=== PATIENT | male | born 1955 | race Hispanic/Latino ===

== ENCOUNTER → 2017-12-04 | Day surgery (SDC) | payer BC ==
[~2017-12-04] MED LIST: ASPIR 8181 MG PO; ATORVASTATIN CA20 MG PO; CEFTRIAXONE SOD 1 GM VIAL ONE; CO Q10100 MG PO; DEXAMETHASONE SOD PHOS INJ 4 MG/ML VIAL ONE; EPHEDRINE SULFATE INJ 50 MG/10 ML SYR ONE; FENTANYL CITRATE/PF 100MCG/2 ML INJ ONE; HYDROMORPHONE 2MG/ML 2 MG/ML ML ONE; LIDOCAINE HCL 2% LOCAL INJ 5 ML SDV VIAL INJ ONE; LISINOPRIL10 MG PO; METFORMIN HCL500 MG PO; METOPROLOL TART25 MG PO; MIDAZOLAM HCL 2 MG/2 ML VIAL ONE; ONDANSETRON HCL INJ 2 MG/ML VIAL ONE; PANTOPRAZOLE SO40 MG PO; PROPOFOL IV EMULSION 10 MG/ML 20 ML VIAL ONE; SEVOFLURANE INHAL SOLN 250 ML PEN BTL ONE
--- NOTE | 2017-12-04 14:54 | Operative Report ---
DATE OF PROCEDURE: December 04, 2017 PREOPERATIVE DIAGNOSES 1. Right spermatocele. 1. Benign prostatic hypertrophy. POSTOPERATIVE DIAGNOSES 1. Right spermatocele. 2. Benign prostatic hypertrophy. 3. Right lipoma of the spermatic cord. OPERATIONS PERFORMED 1. Scrotal exploration on the right side. 2. Right spermatocelectomy. 3. Excision of lipoma of the cord on the right. 4. Flexible cystoscopy. YARN WRAPPER: Dr. Anish Gonzalez. ANESTHETIC: General. Mr. Cruz is a 62-year-old male who presented with a chief complaint of a mass on the right scrotum. Workup showed the mass to be a right spermatocele. He was also noted to have lower urinary tract obstructive symptoms. This patient was placed on the table in the supine position and was prepped and draped in a sterile manner after satisfactory anesthesia. A longitudinal incision over the anterolateral border of the right hemiscrotum incising the skin and the dartos muscle. The tunica vaginalis with the testicle and the spermatocele were then delivered outside the scrotal sac. The tunica vaginalis was incised longitudinally. Attention was now directed to the spermatocele and there were two of them, one on the upper and one on the lower pole of the epididymis. Attention was directed to the one on the globus major, and this was shelled completely without difficulty. Hemostasis was obtained and was very adequate. Attention was now directed to the globus minor, and the spermatocele around that area was then again shelled using Metzenbaum scissors and hemostasis using the electrocautery and was shelled completely. Attention was directed to the spermatic cord, and the tunica vaginalis around the spermatic cord was incised longitudinally. The lipoma was excised from the spermatic cord and shelled out without difficulty. Hemostasis was obtained and was very adequate. Attention was now directed to the wound closure, and the tunica vaginalis was bottlenecked behind the spermatic cord in a continuous fashion using 3-0 Vicryl. The testicle and the cord were delivered inside the scrotal sac. Attention was now directed to the scrotal closure, and the dartos muscle was approximated continuously using 3-0 Vicryl. The skin was approximated interruptedly using 3-0 Vicryl. A sterile dressing was applied over the Dermabond. Cystoscopy was then performed using the flexible cystoscope and it was noted that the urethra was normal. The prostatic urethra was about 3 to 3.5 cm long, partially occlusive. The bladder wall was normal with no evidence of gross tumor, pathology, or any papillary lesions. The bladder was drained, cystoscope removed, and patient taken to the recovery room in satisfactory condition. Plans for this patient are to be placed on Augmentin 500 mg one 3 times a day for 1 week. Tylenol No. 3 and was given 1 every 4 to 6 hours p.r.n. and was given 30. He was instructed to keep the ice pack on and is to return to the office in 3 weeks. Job#: [id number] EV
[2017-12-04 15:00] VITALS: BP 130/84
== END | disposition home or self-care (01) ==
LOC: OR 10:54
PROVIDERS: ATTEND Specialist
DX: N43.42 Spermatocele of epididymis, multiple (principal); N40.1 Benign prostatic hyperplasia with lower urinary tract symptoms; N13.8 Other obstructive and reflux uropathy; D17.6 Benign lipomatous neoplasm of spermatic cord; E11.9 Type 2 diabetes mellitus without complications; K21.9 Gastro-esophageal reflux disease without esophagitis; I10 Essential (primary) hypertension; E78.00 Pure hypercholesterolemia, unspecified; Z79.82 Long term (current) use of aspirin; Z79.84 Long term (current) use of oral hypoglycemic drugs
CPT/HCPCS: 36415; 52000; 54840; 55520; 82948; 88304; J0696; J1100; J1170; J2001; J2250; J2405

== ENCOUNTER 2018-04-23 08:09 | Observation (INO) | payer BC ==
[~2018-04-23] VITALS: Ht 172.7 cm; Wt 85.0 kg
[~2018-04-23 08:09] MED LIST changes: -CEFTRIAXONE SOD 1 GM VIAL ONE; -DEXAMETHASONE SOD PHOS INJ 4 MG/ML VIAL ONE; -EPHEDRINE SULFATE INJ 50 MG/10 ML SYR ONE; -FENTANYL CITRATE/PF 100MCG/2 ML INJ ONE; +HYDRALAZINE HCL25 MG PO; -HYDROMORPHONE 2MG/ML 2 MG/ML ML ONE; -LIDOCAINE HCL 2% LOCAL INJ 5 ML SDV VIAL INJ ONE; -MIDAZOLAM HCL 2 MG/2 ML VIAL ONE; -ONDANSETRON HCL INJ 2 MG/ML VIAL ONE; -PROPOFOL IV EMULSION 10 MG/ML 20 ML VIAL ONE; -SEVOFLURANE INHAL SOLN 250 ML PEN BTL ONE
--- OUTSIDE RECORDS SUMMARY | 2018-04-23 08:15 | XMS REPORT | Clinical Summary ---
Author Author Eric [facility] Organization [facility] Address Unknown Phone Unavailable Care Team Providers Care Swaging Machine Adjuster Name Role Phone Asked, No Pcp PCP Unavailable Allergies Not on File Medications Not on file Active Problems Not on file Encounters Care Team Description Date Type Specialty Jax Carter Preop testing (Primary Dx) 11/29/2017 Orders Only Procedural Cardiology after 04/22/2017 Social History Date Tobacco Use Types Packs/Day Years Used Never Assessed Sex Assigned at Date Recorded Not on file Industry Job Start Date Occupation Not on file Not on file Not on file Travel End Travel History Travel Start No recent travel history available. Last Filed Vital Signs Not on file Plan of Treatment Health Maintenance Due Date Last Done Comments COLON CANCER SCREENING 2006 SHINGLES VACCINES (1 of 2006 2) INFLUENZA VACCINE 10/09/2017 Procedures Comments Procedure Name Priority Date/Time Associated Diagnosis ECG 12-LEAD Routine 11/28/2017 Preop testing 4:25 PM CDT after 04/22/2017 Results * ECG 12 lead (11/28/2017 4:25 PM CDT) Ventricular rate 61 [facility] Atrial rate 61 [facility] IA interval 164 [facility] QRSD interval 90 [facility] QT interval 428 [facility] QTC interval 430 [facility] P axis 1 9 [facility] QRS axis 1 31 [facility] T wave axis 33 [facility] EKG impression Normal sinus rhythm-Normal [facility] ECG-No previous ECGs available- Performing Organization Address City/State/Zipcode Phone Number [facility] [address] [place] [address] after 04/22/2017 Insurance Payer Benefit Subscriber ID Type Phone Address Plan / Group BCBS BCBS OUT xxxxxxxxxxxx PPO OF STATE Advance Directives Patient has advance care planning documents on file. For more information, frederick patiño contact: Eric Najera [address] [place] [address]
[2018-04-23] MEDS ORDERED: HYOSCYAMINE 0.125 MG TAB ONE (08:45)
[2018-04-23] MEDS ORDERED: LEVOFLOXACIN 500MG/D5W 100ML 100 ML IV ONE (08:45)
[2018-04-23] MEDS ORDERED: FUROSEMIDE INJ 10 MG/ML 4 ML VIAL ONE (11:33)
[2018-04-23] MEDS ORDERED: FENTANYL CITRATE/PF 100MCG/2 ML INJ ONE ×2 (11:55→18:05)
[2018-04-23] MEDS ORDERED: TRAMADOL/APAP 37.5MG-325MG TAB PO ONE (12:45)
[2018-04-23] MEDS ORDERED: HYOSCYAMINE 0.125 MG TAB SL ONE (13:00)
--- NOTE | 2018-04-23 13:03 | Operative Report ---
DATE OF PROCEDURE: April 23, 2018 PREOPERATIVE DIAGNOSIS: BPH. POSTOPERATIVE DIAGNOSIS: BPH. OPERATIONS 1. Cystourethroscopy. 2. Transurethral resection of prostate, laser, XPS. [employer] EM[employer]Y SERVICES MANAGER: Dr. Jackson ANESTHETIC: General. Mr. Perez is a 62-year-old male who presented with the chief complaint of significant lower urinary obstructive symptoms. Rectal exam showed an enlarged prostate gland, about 50-60 g, firm and benign. His PSA was normal. Cystourethroscopy showed an enlarged occlusive prostate gland about 4 cm long, trilobar and occlusive. This patient was placed on the table in the lithotomy position, and was prepped and draped in a sterile manner after satisfactory anesthesia. A #23.5 cystoresectoscope was used. Cystourethroscopy was performed and confirmed the previous cystoscopic findings. The XPS laser scope generator was then started starting at 120 feliciano vaporization level and 40 feliciano coagulation level. The median lobe was vaporized completely and flattened to the level of the floor of the prostatic fossa. Vaporization was then started from 12 o'clock to 11 o'clock to 7 o'clock starting at the bladder neck to just proximal to the verumontanum and down to the capsular fibers. Hemostasis was obtained all through and was very adequate. Vaporization was then started again from 1 to 5 o'clock, again starting at the bladder neck to just proximal to the verumontanum and down to the capsular fibers. Again, hemostasis was very adequate. At the termination of the procedure, the laser scope generator was shut down. The cystoresectoscope was removed. The #22-German Orosco catheter was placed on mild traction. Estimated blood loss was zero mL. Job#: [id number] MT
[2018-04-23] MEDS ORDERED: ONDANSETRON HCL INJ 2MG/ML 2ML 2 MG/ML VIAL IV PRN (13:15)
[2018-04-23] MEDS ORDERED: HYDROMORPHONE 1MG/1ML INJ IV PRN (13:15)
--- OUTSIDE RECORDS SUMMARY | 2018-04-23 13:18 | XMS REPORT | Clinical Summary ---
Author Author Eric [facility] Organization [facility] Address Unknown Phone Unavailable Care Team Providers Care Drop Shipment Clerk Name Role Phone Asked, No Pcp PCP [...] [facility] Atrial rate 61 [facility] MD interval 164 [facility] QRSD interval 90 [...] [facility] [address] [place] [address] after 04/22/2017 Insurance Payer Benefit Subscriber ID Type Phone Address Plan / Group BCBS BCBS OUT xxxxxxxxxxxx PPO OF STATE Advance Directives Patient has advance care planning documents on file. For more information, frederick patiño contact: Eric Najera [address] [place] [address]
[2018-04-23] MEDS ORDERED: HYDROMORPHONE 2MG/ML 2 MG/ML ML IV PRN (13:30)
[2018-04-23 14:10] VITALS: BP 128/76
[2018-04-23 14:30] VITALS: BP 128/76
[2018-04-23] MEDS ORDERED: CO Q-10 100 MG1 EACH PO (15:35)
[2018-04-23] MEDS ORDERED: ASPIR 8181 MG PO (15:35)
[2018-04-23] MEDS: SODIUM CHLORIDE 0.9% 1000ML 1,000 ML IV SCH ×2 (15:54→20:11)
[2018-04-23 16:00] VITALS: BP 136/75
[2018-04-23] MEDS ORDERED: PNEUMOCOCCAL VACCINE POLYVALENT 23 MCG/0.5 ML VIAL IM SCH (17:00)
[2018-04-23] MEDS ORDERED: ACETAMINOPHEN 1000 MG/100 ML IV ONE (17:25)
[2018-04-23] MEDS ORDERED: DEXAMETHASONE SOD PHOS INJ 4 MG/ML VIAL ONE (17:25)
[2018-04-23] MEDS ORDERED: SEVOFLURANE INHAL SOLN 250 ML PEN BTL ONE (17:25)
[2018-04-23] MEDS ORDERED: LIDOCAINE HCL 2% LOCAL INJ 5 ML SDV VIAL INJ ONE (17:25)
[2018-04-23] MEDS ORDERED: PROPOFOL IV EMULSION 10 MG/ML 20 ML VIAL ONE (17:25)
[2018-04-23] MEDS ORDERED: ONDANSETRON HCL INJ 2MG/ML 2ML 2 MG/ML VIAL ONE (17:25)
[2018-04-23] MEDS ORDERED: KETOROLAC TROMETHAMINE 30 MG/ML VIAL ONE (17:25)
[2018-04-23] MEDS ORDERED: MIDAZOLAM HCL 2 MG/2 ML VIAL ONE (18:05)
[2018-04-23] MEDS: HYDRALAZINE HCL 25 MG TAB PO SCH (18:17)
[2018-04-23] MEDS: METFORMIN HCL 500 MG TAB PO SCH (18:17)
--- NOTE | 2018-04-23 18:35 | NUR ---
Lying in bed watching TV, at bedside. CBI flowing with issue. No complains or concerns.
[2018-04-23] MEDS: CIPROFLOXACIN 500 MG TAB PO SCH (20:10)
[2018-04-23] MEDS ORDERED: ATORVASTATIN 20 MG TAB PO SCH (21:00)
[2018-04-23] MEDS: TRAMADOL/APAP 37.5MG-325MG TAB PO PRN (23:00)
[2018-04-24 00:16] VITALS: BP 109/64
--- NOTE | 2018-04-24 01:59 | NUR ---
Continuous bladder irrigation flowing unobstructed with no visible clots present in bol[place] or in tubing. Patient states minimal pain and urine color is pale pink and trending capture manager. Bolanos secured to patient's leg with tape. Will continue to monitor.
[2018-04-24] MEDS: SODIUM CHLORIDE 0.9% 1000ML 1,000 ML IV SCH (04:20)
[2018-04-24] MEDS: METFORMIN HCL 500 MG TAB PO SCH (04:20)
[2018-04-24 04:25] VITALS: BP 112/69
[2018-04-24 05:29] LABS: BASOPHILS % 0.3 % (0.0-1.0); EOSINOPHILS # (AUTO) 0.1 (0.0-0.4); EOSINOPHILS % 0.4 % (0.0-6.0); HEMATOCRIT 41.8 % (38.2-49.6); HEMOGLOBIN 13.9 g/dL (14.0-18.0); LYMPHOCYTES # (AUTO) 1.9 (1.0-3.2); LYMPHOCYTES % 13.7 % (18.0-39.1); MEAN CORPUSCULAR HEMOGLOBIN 27.9 pg (28-32); MEAN CORPUSCULAR HGB CONC 33.3 g/dL (31-35); MEAN CORPUSCULAR VOLUME 83.8 fL (81-99); MONOCYTES # (AUTO) 0.8 (0.2-0.8); MONOCYTES % 5.5 % (4.4-11.3); NEUTROPHILS % 79.7 % (38.7-80.0); PLATELET COUNT 129 x10e3/uL (140-360); RED BLOOD COUNT 4.99 x10e6/uL (4.3-5.7); RED CELL DISTRIBUTION WIDTH 12.8 % (11.7-14.4)
[2018-04-24] MEDS: TRAMADOL/APAP 37.5MG-325MG TAB PO PRN ×3 (05:37→12:00)
[2018-04-24 05:51] LABS: ANION GAP 12.7 mmol/L (8-16); BLOOD UREA NITROGEN 16 mg/dL (7-26); BUN/CREATININE RATIO 20 (6-25); CALCIUM 8.3 mg/dL (8.4-10.2); CARBON DIOXIDE 23 mmol/L (22-29); CHLORIDE 104 mmol/L (98-107); EST GLOMERULAR FILTRATION RATE > 60 ML/MIN (60-); GLUCOSE 104 mg/dL (74-118); POTASSIUM 3.7 mmol/L (3.5-5.1); SODIUM 136 mmol/L (136-145)
--- NOTE | 2018-04-24 06:55 | NUR ---
Walking rounds done. CBI infusing, urine light pink color and patient denies any pain at this time. POC discussed in [place]. Bed in lowest position, locked and call uribe within reach.
[2018-04-24 07:40] VITALS: BP 123/76
[2018-04-24] MEDS: CIPROFLOXACIN 500 MG TAB PO SCH (08:57)
[2018-04-24] MEDS: HYDRALAZINE HCL 25 MG TAB PO SCH (08:57)
[2018-04-24] MEDS ORDERED: CO ENZYME Q PO SCH (09:00)
[2018-04-24] MEDS ORDERED: METOPROLOL TARTRATE 25 MG TAB PO SCH (09:00)
--- NOTE | 2018-04-24 09:08 | NUR ---
POST DISCHARGE STATUS FORM FILED IN CHART RETURNING HOME WITH NO NEEDS
[2018-04-24 11:57] VITALS: BP 139/83
[2018-04-24] MEDS ORDERED: ULTRACET TABLE1 EACH PO (12:35)
[2018-04-24] MEDS ORDERED: CIPRO500 MG PO (12:35)
--- NOTE | 2018-04-24 13:00 | NUR ---
patient discharged home with written instructions and prescriptions. IV dc'd, cath intact and some dressing applied. He verbalized understanding. Family provided ride home.
== END 2018-04-24 12:57 | disposition home or self-care (01) ==
LOC: OR 08:09 → PACU V 13:10 → IMCU 14:23
PROVIDERS: ADMIT Specialist; ATTEND Specialist
DX: N40.1 Benign prostatic hyperplasia with lower urinary tract symptoms (principal); I25.2 Old myocardial infarction; I10 Essential (primary) hypertension; I25.10 Atherosclerotic heart disease of native coronary artery without angina pectoris; E11.9 Type 2 diabetes mellitus without complications; Z79.84 Long term (current) use of oral hypoglycemic drugs
CPT/HCPCS: 36415 ×2; 52648; 80048; 82948 ×2; 85025; G0378 ×2; J0131; J1100; J1885; J1940; J1956; J2001; J2250; J2405; J2704; J7030 ×2